=== PATIENT | male | born 1995 | race Caucasian/White ===

== ENCOUNTER → 2017-05-16 | Outpatient (CLI) | payer BC, OTHER ==
[2015-08-16 17:36] VITALS: BP 126/81
--- NOTE | 2017-05-16 13:38 | RAD ---
FOOT RIGHT 3V Clinical Indication: RIGHT FOOT PAIN AND SWELLING X 3 DAYS Comparison: Right foot radiographs dated 07/26/2006 Findings: No acute fracture or malalignment. Multipartite hallux sesamoid. Joint spaces are maintained. Bony mineralization is normal for the patient's age. No significant soft tissue abnormality. IMPRESSION: No acute fracture or malalignment.
== END | disposition home or self-care (01) ==
LOC: DXRADRC 08:25
PROVIDERS: ATTEND Physician Assistant Medical
DX: M25.571 Pain in right ankle and joints of right foot (principal); M25.474 Effusion, right foot
CPT/HCPCS: 73630

== ENCOUNTER 2019-12-15 09:49 | Emergency (ER) | payer SELFPAY ==
[~2019-12-15] VITALS: Ht 188 cm; Wt 77.9 kg
--- NOTE | 2019-12-15 10:42 | RAD ---
3 view study of the great toe of the right foot Clinical indications: Crushing injury. FINDINGS: There is a comminuted fracture of the distal tuft and metaphysis of the first distal phalanx. No dislocation or lytic process is seen. Associated soft tissue injury is seen. IMPRESSION: Comminuted fracture of the first distal phalanx. Electronically signed by: Hugo Melgar MD (12/15/2019 10:39 AM) [facility]
[2019-12-15] MEDS ORDERED: ONDANSETRON PF 4 MG/2 ML VIAL. ONE (10:51)
[2019-12-15 10:59] VITALS: BP 124/56
[2019-12-15] MEDS ORDERED: ONDANSETRON PF 4 MG/2 ML VIAL. IVP ONE (11:00)
[2019-12-15] MEDS ORDERED: ceFAZolin SODIUM 2 GM in IV DEXTROSE 5% 50 ML IV ONE (11:00)
[2019-12-15] MEDS ORDERED: ceFAZolin SODIUM 1 GM VIAL ONE ×2 (11:05→11:09)
[2019-12-15] MEDS ORDERED: IV DEXTROSE 5% 50 ML ONE ×2 (11:05→11:09)
--- NOTE | 2019-12-15 11:10 | PHYS DOC ---
Past History Past Medical History: Asthma Past Surgical History: No Surgical History Alcohol Use: Occasionally Drug Use: None Adult General Chief Complaint Chief Complaint: TOE PROBLEM HPI HPI Patient is a 24-year-old male who presents with injury to his right great toe. Patient indicates that he was carrying a large box and a large box dropped directly onto his foot, injuring his great toe. Patient states that he believes the box weighed about 100 pounds. He states that when he took his shoe off, the distal tip of the toe was avulsed forward and he was able to see the bone in his toe. Patient denies any other injuries. He rates the pain at a 3 out of 10.[] Review of Systems Review of Systems Constitutional: Denies fever or chills [] Respiratory: Denies cough or shortness of breath [] Cardiovascular: No additional information not addressed in HPI [] Musculoskeletal: Positive right great toe injury and pain [] Integument: Laceration/avulsion to great toe[] Neurologic: Denies headache, focal weakness or sensory changes [] All other systems were reviewed and found to be within normal limits, except as documented in this note. Current Medications Current Medications Current Medications Medications (Trade) Dose Ordered Sig/Brady Start Time Stop Time Status Last Admin Dose Admin Cefazolin Sodium 2 gm/Dextrose 50 ml @ 100 mls/hr 1X ONCE 12/15/19 11:00 12/15/19 11:29 UNV Fentanyl Citrate (Fentanyl 2ml Vial) 50 mcg 1X ONCE 12/15/19 11:00 12/15/19 11:01 UNV 12/15/19 10:55 50 MCG Ondansetron HCl (Zofran) 4 mg 1X ONCE 12/15/19 11:00 12/15/19 11:01 UNV 12/15/19 10:54 4 MG Allergies Allergies Allergies Coded Allergies Type Severity Reaction Last Updated Verified No Known Drug Allergies 08/16/15 No Physical Exam Physical Exam Constitutional: Well developed, well nourished, no acute distress, non-toxic appearance. [] HENT: Normocephalic, atraumatic, bilateral external ears normal, oropharynx moist, no oral exudates, nose normal. [] Eyes: PERRLA, EOMI, conjunctiva normal, no discharge. [] Neck: Normal range of motion, no tenderness, supple. [] Cardiovascular: Regular rate and rhythm[] Lungs & Thorax: Bilateral breath sounds clear to auscultation [] Abdomen: Bowel sounds normal, soft, no tenderness. [] Skin: Warm, dry, no erythema, no rash. [] Extremities: Right great toe demonstrates laceration with evulsion of the nail from the base extending medially and laterally to plantar aspect of the toe. [] Neurologic: Alert and oriented X 3, no focal deficits noted. [] Current Patient Data Vital Signs Vital Signs Date Time Temp Pulse Resp B/P (MAP) Pulse Ox O2 Delivery O2 Flow Rate FiO2 12/15/19 09:49 97.8 93 16 131/82 (98) 99 Room Air EKG EKG [] Radiology/Procedures Radiology/Procedures [] Impressions: PROCEDURE: TOES RIGHT 3 view study of the great toe of the right foot Clinical indications: Crushing injury. FINDINGS: There is a comminuted fracture of the distal tuft and metaphysis of the first distal phalanx. No dislocation or lytic process is seen. Associated soft tissue injury is seen. IMPRESSION: Comminuted fracture of the first distal phalanx. Electronically signed by: Hugo Melgar MD (12/15/2019 10:39 AM) [facility] Course & Med Decision Making Course & Med Decision Making Pertinent Labs and Imaging studies reviewed. (See chart for details) Patient moved to room upon arrival was evaluated by your medical staff after which an x-ray was obtained of the toe. X-ray demonstrates fracture through the distal phalanx consistent with open fracture. At this point Dr. Bunch with orthopedics was contacted and will accept patient in transfer to the emergency room at [facility]. Dragon Disclaimer Dragon Disclaimer This electronic medical record was generated, in whole or in part, using a voice recognition dictation system. Departure Departure: Impression: Primary Impression: Fracture of great toe, right, open Disposition: 02 XFER [facility] HOSP Condition: IMPROVED Referrals: [facility]COL[facility] (PCP) Problem Qualifiers Primary Impression: Fracture of great toe, right, open Encounter type: initial encounter Phalanx: distal Fracture alignment: displaced Qualified Codes: S92.421B - Displaced fracture of distal phalanx of right great toe, initial encounter for open fracture MARIAN BA Jr. DO Dec 15, 2019 11:10
== END 2019-12-15 12:04 | disposition short-term general hospital (02) ==
LOC: ER 09:49
DX: S92.421B Displaced fracture of distal phalanx of right great toe, initial encounter for open fracture (principal); J45.909 Unspecified asthma, uncomplicated; W20.8XXA Other cause of strike by thrown, projected or falling object, initial encounter; Y93.89 Activity, other specified; Y92.89 Other specified places as the place of occurrence of the external cause; Y99.8 Other external cause status
CPT/HCPCS: 73660; 96365; 96375; 99285; J0690; J2405; J3010